=== PATIENT | female | born 1930 | race Caucasian/White ===

== ENCOUNTER → 2017-04-18 | Outpatient (CLI) | payer MEDICARE, OTHER ==
[~2017-04-18] MED LIST: DIOVAN
== END | disposition home or self-care (01) ==
LOC: RD 09:35
DX: M25.511 Pain in right shoulder (principal)

== ENCOUNTER 2019-01-19 18:41 | Inpatient (IN) | payer MEDICAID, MEDICARE ==
[~2019-01-19] VITALS: Ht 152.4 cm; Wt 60.0 kg
[2019-01-19 19:18] VITALS: Ht 152.4 cm; Wt 60.0 kg
--- NOTE | 2019-01-19 20:23 | NUR ---
PT LYING IN BED, AAOX4 WITH C/O 10/10 PAIN/SWELLING TO LT LEG TODAY WITH RASH X 2 WEEKS. PT DENIES ANY INJURY/TRAUMA. PT DENIES ANY N/V/D/C, RESP ILLNESS, OR URINARY PROBLEMS. PER FAMILY AT BEDSIDE, PT HAS HAD INTERMITTANT FEVERS X 2 WEEKS. PT NOTED WITH REDNESS/SWELLING FROM LT THIGHT TO LT FOOT, INCREASED PAIN WITH PALPATION. PER FAMILY AT BEDSIDE, PT ALSO HAS HAD A POOR APPETITE.
[2019-01-19] MEDS ORDERED: TRAZODONE50 M1 PO (20:31)
[2019-01-19] MEDS ORDERED: DIOVAN80 MG PO (20:31)
[2019-01-19] MEDS ORDERED: ASPIR 8181 MG PO (20:31)
[2019-01-19] MEDS ORDERED: CETIRIZINE HYDR10 MG PO (20:32)
[2019-01-19 21:00] LABS: BASOPHIL % 0.4 % (0-2); PLATELET COUNT 257 x10^3mcL (130-400); RED CELL DISTRIBUTION WIDTH 13.5 % (11.5-14.5)
--- NOTE | 2019-01-19 21:02 | NUR ---
US TECH AT BEDSIDE FOR US OF LT LEG.
[2019-01-19 21:11] LABS: CALCIUM 9.1 mg/dL (8.5-10.1); CHLORIDE SERUM 94 mmol/L (98-107); CREATININE SERUM 1.1 mg/dL (0.6-1.0); GLUCOSE SERUM 99 mg/dL (74-106); POTASSIUM SERUM 3.2 mmol/L (3.5-5.1); SODIUM SERUM 129 mmol/L (136-145)
[2019-01-19 21:17] LABS: ALKALINE PHOSPHATASE 67 U/L (46-116); ALT/SGPT 22 U/L (14-59); AST/SGOT 23 U/L (15-37); BILIRUBIN TOTAL 0.5 mg/dL (0.20-1.00); TOTAL PROTEIN, SERUM 7.7 g/dL (6.4-8.2)
--- NOTE | 2019-01-19 22:17 | NUR ---
PT RESTING IN BED WITH NO SIGNS OF DISTRESS AT THIS TIME.
--- NOTE | 2019-01-19 22:54 | NUR ---
REPORT GIVEN TO FELTON LANGLEY.
[2019-01-19 22:55] LABS: MAGNESIUM 2.2 mg/dL (1.8-2.4); PHOSPHOROUS 2.1 mg/dL (2.5-4.9)
[2019-01-19 23:02] LABS: CHOLESTEROL/HDL RATIO 4.8
[2019-01-19 23:43] VITALS: BP 155/58
[2019-01-19 23:57] LABS: UA SPECIFIC GRAVITY <=1.005 (1.005-1.035); microscopic required? YES; urine erythrocyte 2+ (NEGATIVE)
--- NOTE | 2019-01-19 23:58 | NUR ---
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 LUNG SOUND CLEAR BILATERAL, NO COUGH, PT IS ON TELE 8, NSR, DENY ANY CHEST PAIN OR DISCOMFORT, BOWEL SOUND PRESENT ALL 4 QUADRANTS, NO DISTENTION, NO TENDER. LEFT LEG ERYTHEMA AND SWELLING, +3 EDEMA LLE, RIGHT ANKLE ERYTHEMA, +1 RLE. IV AT LEFT FA, NO LEAKING, NO INFILTRATION. ALL ADLS ASSIST, ALL NEED MET, CALL LIGHT IN REACH, WILL CONTINUE TO MONITOR.
--- NOTE | 2019-01-20 00:05 | NUR ---
PT IS RESTING IN BED. A/O x4. DAUGHTER AT BEDSIDE. PT IS ON TELE #8, NSR. DENIES ANY CHEST PAIN OR PRESSURE. PULSES ARE PRESENT. EDEMA NOTED +3 ON LLE AND +1 ON RLE. LLE IS PINK IN COLOR FROM THE TOES TO UPPER THIGH. PT STATES IT WAS PINK FOR TWO WEEKS THEN IT JUST SWELLED UP AND SHE IS UNABLE TO WALK THAN BEFORE. SHE USES A WALKER AT BASELINE. SKIN IS INTACT, NO OPEN LESIONS. LUNGS CLEAR IN ALL FEILDS. ON RA, DENIES ANY SOB. EQUAL CHEST RISE AND FALL. DENIES ANY PAIN AT THIS TIME. IV ON LFA INTACT AND PATENT. BED IS AT LOWEST SETTING. CALL LIGHT WITHIN REACH. WILL CONTIUE TO [facility].
[2019-01-20 00:13] LABS: AMPHETAMINE QUAL UR NONE DETECTED (See below)
[2019-01-20 06:08] VITALS: BP 113/45
--- NOTE | 2019-01-20 06:39 | NUR ---
PT IS RESTING IN BED. DENIES ANY PAIN OR DISTRESS AT THIS TIME. NO ACUTE EVENTS OCCURED DURING SHIFT. BED IS AT LOWEST SETTING. CALL LIGHT WITHIN REACH. WILL ENDORSE TO AM NURSE.
--- NOTE | 2019-01-20 07:13 | NUR ---
RECEIVED PT IN NO ACUTE DISTRESS. AAOX4. RESP EVEN AND UNLABORED ON RA. ERYTHEMA AND SWELLING TO LLE, OUTLINED WITH MARKER. 2+ EDEMA TO LLE, 1+ EDEMA TO RLE. PT C/O PAIN TO LLE ONLY WHEN TOUCHED. IVF INFUSING, NO REDNESS OR SWELLING TO IV SITE. BED IN LOW POSITION, CALL LIGHT WITHIN REACH. WILL CONTINUE TO MONITOR.
[2019-01-20 07:15] LABS: CALCIUM 8.4 mg/dL (8.5-10.1); CARBON DIOXIDE 24.8 mmol/L (21-32); CHLORIDE SERUM 100 mmol/L (98-107); CREATININE SERUM 0.9 mg/dL (0.6-1.0); GLUCOSE SERUM 94 mg/dL (74-106); PHOSPHOROUS 2.7 mg/dL (2.5-4.9); POTASSIUM SERUM 4.1 mmol/L (3.5-5.1); SODIUM SERUM 133 mmol/L (136-145)
[2019-01-20 08:08] VITALS: BP 124/57
[2019-01-20 08:10] LABS: BASOPHIL % 0.4 % (0-2); PLATELET COUNT 216 x10^3mcL (130-400)
--- NOTE | 2019-01-20 11:49 | NUR ---
PT RESTING IN BED WITH EYES CLOSED BUT EASILY AROUSABLE. BREATHING EVEN AND UNLABORED ON RA. NO PAIN NOTED. LLE ELEVATED WITH PILLOW. IVF INFUSING, NO REDNESS OR SWELLING NOTED. VISITOR AT BEDSIDE. CALL LIGHT WITHIN REACH. WILL CONTINUE TO MONITOR.
[2019-01-20 12:12] VITALS: BP 116/56
--- NOTE | 2019-01-20 15:39 | NUR ---
Discount pharmacy card and list to low cost medical clinics given to patient by Yue Hein.
[2019-01-20 16:20] VITALS: BP 120/61
--- NOTE | 2019-01-20 17:00 | NUR ---
PT RESTING IN BED. NO ACUTE DISTRESS. REPORTS LITTLE PAIN TO LLE, TOLERABLE. LLE ELEVATED WITH PILLOW. IVF INFUSING, NO REDNESS OR SWELLING NOTED. CALL LIGHT WITHIN REACH. WILL CONTINUE TO MONITOR.
--- NOTE | 2019-01-20 18:06 | NUR ---
PT IN NO ACUTE DISTRESS. SITTING UP IN BED EATING DINNER. C/O MILD PAIN TO LLE BUT TOLERABLE. LLE WITH ERYTHEMA AND SWELLING, ELEVATED WITH PILLOW. R ANKLE WITH ERYTHEMA, PSYCHOLOGISTS. HOB ELEVATED. IVF INFUSING, NO REDNESS OR SWELLING NOTED. FALL PRECAUTIONS IN PLACE. BED IN LOW POSITION, CALL LIGHT WITHIN REACH. WILL ENDORSE TO ONCOMING SHIFT.
--- NOTE | 2019-01-20 19:30 | NUR ---
RECEIVED PT FROM DAY SHIFT RN. PT AAOX4 DENIES DAVEY/DIZZINESS. TELE #8 SR HR 65. PT DENIES CHEST PAIN/PRESSURE. BREATHING EVEN AND UNLABORED WITH NO SOB NOTED. GENERALIZED WEAKNESS. LEFT LEF EDEMA AND ERYTHEMA NOTED. RIGHT ANKLE ERYTHEMA NOTED. IV LFA PATENT AND INFUSING WELL. PT DENIES ANY PAIN. NO SIGNS OF ACUTE DISTRESS. CALL BUTTON WITHIN REACH. SAFETY PRECAUTIONS IN PLACE. WILL CONTINUE TO MONITOR.
[2019-01-20 20:57] VITALS: BP 115/61
--- NOTE | 2019-01-21 01:02 | NUR ---
PT RESTING. BREATIHNG EVEN AND UNLABORED WITH NO SOB NOTED. SAFETY PRECAUTIONS IN PLACE. WILL CONTINUE TO MONITOR.
--- NOTE | 2019-01-21 03:34 | NUR ---
ROUNDS MADE. PT RESTING. BREATHING EVEN AND UNLABORED WITH NO SIGNS OF DISTRESS. SAFETY PRECAUTIONS IN PLACE. WILL CONTINUE TO MONITOR.
--- NOTE | 2019-01-21 05:11 | NUR ---
PT SLEPT MOST OF THE NIGHT WITH NO SIGNS OF DISTRESS. BREATHING EVEN AND UNLABORED ON RA WITH NO SOB NOTED. IV PATENT, INFUISNG WELL WITH NO SIGNS OF INFILTRATION. PT MEDICATED PER EMAR. PT DENIES ANY PAIN. NO SIGNS OF DISTRESS. CALL BUTTON WITHIN REACH. SAFETY PRECAUTIONS IN PLACE. WILL CONTINUE TO MONITOR AND ENDORSE CARE TO DAY SHIFT RN.
[2019-01-21 06:02] VITALS: BP 128/53
[2019-01-21 07:00] LABS: CALCIUM 8.4 mg/dL (8.5-10.1); CARBON DIOXIDE 25.6 mmol/L (21-32); CHLORIDE SERUM 105 mmol/L (98-107); CREATININE SERUM 0.9 mg/dL (0.6-1.0); GLUCOSE SERUM 89 mg/dL (74-106); PHOSPHOROUS 3.4 mg/dL (2.5-4.9); POTASSIUM SERUM 3.7 mmol/L (3.5-5.1); SODIUM SERUM 139 mmol/L (136-145)
--- NOTE | 2019-01-21 07:17 | NUR ---
PT RESTING IN NO SIGNS OF DISTRESS. ENDORSED CARE TO DAY SHIFT RN, ALL QUESTIONS ADDRESSED.
--- NOTE | 2019-01-21 07:18 | NUR ---
RECEIVED PT RESTING IN BED. NO ACUTE DISTRESS. SLEEPING BUT EASILY AROUSABLE. BREATHING EVEN AND UNLABORED ON RA. IVF INFUSING, NO REDNESS OR SWELLING TO IV SITE. ERYTHEMA AND SWELLING TO LLE, CRIMINAL LAWYER, ELEVATED WITH PILLOW. SMALL ERYTHEMA TO R ANKLE, JOAQUIN. APPEARS COMFORTABLE, NO PAIN NOTED. FALL PRECAUTIONS. BED IN LOW POSITION, CALL LIGHT WITHIN REACH. WILL CONTINUE TO MONITOR.
[2019-01-21 07:51] LABS: BASOPHIL % 0.6 % (0-2); PLATELET COUNT 213 x10^3mcL (130-400); RED CELL DISTRIBUTION WIDTH 13.3 % (11.5-14.5)
[2019-01-21 09:06] VITALS: BP 129/46
[2019-01-21 12:12] VITALS: BP 132/48
--- NOTE | 2019-01-21 12:49 | NUR ---
PT SITTING UP IN BED. NO ACUTE DISTRESS. AAOX4. DENIES PAIN. IVF INFUSING, NO REDNESS OR SWELLING TO IV SITE. FAMILY AT BEDSIDE. HOB ELEVATED. FALL PRECAUTIONS. CALL LIGHT WITHIN REACH. WILL CONTINUE TO MONITOR.
[2019-01-21 17:04] VITALS: BP 138/53
--- NOTE | 2019-01-21 18:21 | NUR ---
PT SITTING UP IN BED. NO ACUTE DISTRESS. DENIES LLE PAIN. ERYTHEMA AND SWELLING TO LLE DECREASED, EXTREMITY ELEVATED WITH PILLOW. R ANKLE WITH ERYTHEMA. IVF INFUSING, NO REDNESS OR SWELLING NOTED. HOB ELEVATED. FALL PRECAUTIONS. FAMILY MEMBERS AT BEDSIDE. BED IN LOW POSITION, CALL LIGHT WITHIN REACH. WILL ENDORSE TO ONCOMING SHIFT.
[2019-01-21 19:33] VITALS: BP 137/51
--- NOTE | 2019-01-21 19:38 | NUR ---
RECEIVED PT FROM PREVIOUS SHIFT. PT A/OX4. DENIES PAIN. DENIES SOB ON RA. IV PATENT AND INFUSING NS AT 70ML/HR WITH NO S/S OF INFILTRATION. CALL LIGHT WITHIN REACH, BED IN LOW POSITION. WILL CONTINUE TO MONITOR.
--- NOTE | 2019-01-22 02:41 | NUR ---
PT RESTING IN NO ACUTE DISTRESS. RR EVEN AND UNLABORED. CALL LIGHT WITHIN REACH, BED IN LOW POSITION. WILL CONTINUE TO MONITOR.
[2019-01-22 06:04] VITALS: BP 152/51
[2019-01-22 06:20] LABS: BASOPHIL % 0.4 % (0-2); PLATELET COUNT 263 x10^3mcL (130-400); RED CELL DISTRIBUTION WIDTH 13.2 % (11.5-14.5)
[2019-01-22 06:32] LABS: CALCIUM 8.1 mg/dL (8.5-10.1); CARBON DIOXIDE 26.8 mmol/L (21-32); CHLORIDE SERUM 105 mmol/L (98-107); CREATININE SERUM 0.8 mg/dL (0.6-1.0); GLUCOSE SERUM 92 mg/dL (74-106); POTASSIUM SERUM 3.8 mmol/L (3.5-5.1); SODIUM SERUM 140 mmol/L (136-145)
--- NOTE | 2019-01-22 07:04 | NUR ---
RECIEVED REPORT FROM EULOGIO LANGLEY. PATIENT SLEEPING COMFORTABLY IN BED. NO NEEDS IDENTIFIED. IV TO LFA IS PATENT AND INFUSING NS @ 70 ML/HR. NO REDNESS OR PAIN. PT ON ROOM AIR. NO C/O SOB AND NO DISTRESS NOTED.TELE # [address] NO INDICATION OF CHEST PAIN. ALL QUESTIONS AND CONCERNS ADDRESSED.
[2019-01-22 08:43] VITALS: BP 140/53
--- NOTE | 2019-01-22 09:33 | NUR ---
PT IV INFILTRATED. NEW INSERTION ATTEMPT X4 WITH NO SUCCESS. QUALITY PROCESS ENGINEERKORIN YOUNG NOTIFIED. WILL ADMINISTER ROCEPHIN UPON INSERTION.
--- NOTE | 2019-01-22 11:17 | NUR ---
PATIENT AMBULATING IN THE [facility] WITH PHYSICAL THERAPY ASSISTED BY A WALKER.
--- NOTE | 2019-01-22 11:51 | NUR ---
NEW IV INSERTED IN RFA. ANTIBIOTICS ADMINISTERED NOW.
--- NOTE | 2019-01-22 12:03 | NUR ---
PATIENT TRANSFERRED TO [facility] IN TO REMOVE TELE MONITOR. PATIENT RESTING COMFORTABLY IN BED WITH DAUGHTER AT BEDSIDE. ALL NEEDS MET.
[2019-01-22 13:35] VITALS: BP 150/57
--- NOTE | 2019-01-22 13:46 | NUR ---
Initial Nutrition Assessment: 240T/B SUSAN MARTÍNEZ IA HR Dx: Cellulitis, hyponatremia PMHx: Hypertension, Major Depressive Disorder, Generalised Anxiety, Osteoarthritis PSHx: Other (unspecified Rt leg surgery) Labs: CA 8.1L, HGB 10.3L Meds: Colace, norco, rocephin, zofran Diet: regular PO Intake: (01/22) breakfast 100%, (01/21) breakfast 80%, lunch 90% Ht: 152.4 cm (60") Wt: 60.3 kg (133#) BMI: 26 kg/m2 Bed scale: 127.9# IBW: 100# (45 kg) %IBW: 133 UBW: 130# Age: 88/F Food Allergies: NKFA Skin: Rash noted to LLE just above knee. Nico: 18 Edema: +1 LLE GI: Last BM: 01/19 Trigger: poor PO >3d Per H&P, Pt is a 88 yoF with PMH of HTN came with cc of Left leg pain and rash. RDN Visit (01/22): Patient was alert and oriented but only spoke Beninese. Pt's. daughter was at bedside. She helped with translation. Pt. said that her appetite is poor but she tries to eat as much as she can. Patient appears emaciated and weak. Per progress note, (01/22) Patient continues on IV Rocephin for both cellulitis and UTI. Cellulitis doesnt appear to be improving and swelling is still noted. consulted Dr.Dhawan MALONE . Problem with: N/V/D/C: no Problems with: Chewing/Swallowing: no Current appetite: poor Recent wt change: none %wt change: n/a Vitamin/Supplement use: Vitamin D, MVI Special diet at home: regular Physical activity: walks with walker Nutrition education given: PO was encouraged. Pt. did not have any questions at this time. Food-drug interactions: Colace- high fiber w/8489-9653 ml fluids Education given:no Estimated Nutritional Needs Based on current body weight 60.3 kg Energy: 0206-3960 kcal/d (30-35 kcal/kg)- geriatric needs Protein: 60-72 g/d (1.0-1.2 g/kg) - preserve LBM Fluid: 9908-5387 ml/d (1 ml/kcal) or per doctor Nutrition Diagnosis 1. Increased nutrient needs related to inflammation, cellulitis, UTI as evidencded by estimated calorie and protein needs. Intervention 1. Recommend continuing regular diet with Ensure High protein BID Monitor/Evaluate Goal: PO intake at least 75% of estimated needs Monitor: PO intake, Labs, GI function F/U in 7 days as low risk 01/29
--- NOTE | 2019-01-22 13:47 | NUR ---
1. Recommend continuing regular diet with Ensure High protein BID
--- NOTE | 2019-01-22 15:13 | NUR ---
SPOKE WITH PHARMACY TO INQUIRE ABOUT CETIRIZINE STATUS IT HAS BEEN UNVERIFIED FOR SEVERAL DAYS. PHARMACIST STATED THAT IT IS NON-FORMULARY AND EITHER NEEDS TO BE BROUGHT IN BY FAMILY OR CHANGED TO EITHER BENADRYL OR CLAIRITIN.
[2019-01-22 16:35] VITALS: BP 144/65
--- NOTE | 2019-01-22 18:19 | NUR ---
IN TO SEE PATIENT AND ASSESS NEEDS. PATIENT RESTING COMFORTABLY IN BED WITH DAUGHTER AT BEDSIDE. ALL NEEDS MET.
--- NOTE | 2019-01-22 18:35 | NUR ---
PATIENT REPORTS ONE LARGE FORMED BM.
--- NOTE | 2019-01-22 19:17 | NUR ---
REPORT GIVEN TO CRISTINE LANGLEY. PATIENT RESTING COMFORTABLY IN BED WITH DAUGHTER AT BEDSIDE. ALL NEEDS MET. ALL QUESTIONS AND CONCERNS ADDRESSED. ALL CARES ENDORSED.
--- NOTE | 2019-01-22 19:44 | NUR ---
SHIFT REASSESSMENT DONE.PATIENT ALERT AND ORIENTED.MAINLY NEPALI,NEEDS ANTICIPATED.DAUGHTER AT BEDSIDE.SUPPORTIVE OF CARE.LLE REDNESS AND SWELLING .RLE REDNESS.VOIDING PER BEDPAN.NEPALI SPEAKING,NEEDS ANTICIPATED.CALL LIGHT IN REACH.DAUGHTER AT BEDSIDE.
--- NOTE | 2019-01-22 21:03 | NUR ---
PM MEDS GIVEN,SWALLOWS WELL.NS INFUSING WELL.MEDSURG,NO CHEST PAIN.CALL LIGHT IN REACH.MAINLY THAI,NEEDS ANTICIPATED.
[2019-01-22 21:52] VITALS: BP 143/48
--- NOTE | 2019-01-22 23:50 | NUR ---
DR CRUZ CAME IN ,DC MALISSA RICE ORDERED.
--- NOTE | 2019-01-23 03:18 | NUR ---
PATIENT USING BEDPAN WHEN NEEDED.KEEP CLEAN AND DRY.LEGS ELEVATED ON PILLOW,NEW ATB WILL START AT 6 AM.CALL LIGHT IN REACH.
--- NOTE | 2019-01-23 06:18 | NUR ---
PATIENT USES BEDPAN WHEN NEEDED.IVF INTACT,NEW ATB INITIATED.WILL CONTINUE PLAN OF CARE.
[2019-01-23 06:38] VITALS: BP 168/63
[2019-01-23 06:41] VITALS: BP 140/80
[2019-01-23 07:49] LABS: CARBON DIOXIDE 24.9 mmol/L (21-32); CHLORIDE SERUM 105 mmol/L (98-107); CREATININE SERUM 0.8 mg/dL (0.6-1.0); GLUCOSE SERUM 91 mg/dL (74-106); POTASSIUM SERUM 3.7 mmol/L (3.5-5.1); SODIUM SERUM 139 mmol/L (136-145)
--- NOTE | 2019-01-23 07:53 | NUR ---
AAO TIMES 4. NO TELE, MED SURG PATIENT. LUNGS CTA. NO SOB. O2 SAT ON RA 94%. BS'S ACTIVE TIMES 4. OLIVO, USES WALKER AT HOME. REQUESTING TO USE BEDPAN, DOESNT WANT TO AMBULATE TO [facility] YET. +1 EDEMA LLE. ERYTHEMA FROM LEFT MID JOVI DOWN TO LEFT FOOT. IV SITE RFA CDI, PATENT. NO C/O PAIN.
[2019-01-23 09:06] VITALS: BP 148/55
[2019-01-23 09:49] LABS: BASOPHIL % 1.7 % (0-2); PLATELET COUNT 249 x10^3mcL (130-400); RED CELL DISTRIBUTION WIDTH 13.5 % (11.5-14.5)
--- NOTE | 2019-01-23 15:15 | NUR ---
PATIENT C/O ITCHING TO CHEST AREA. ACROSS HER CHEST AND HER SHOULDERS AND UPPER ARMS IS A RASH WITH SCRATCH ADAMS. IT IS SOME WHEELS OF ERYTHEMA WITH OCCASIONAL SCRATCH AMRKS. I CALLED LIZ ORTIZ, SHE ORDERED BENADRYL 25 MG PO, IT WAS GIVEN AT 1532. I ALSO CLEANED HER UPPER CHEST WITH COOL WET WIPES. AFTER I CLEANED HER CHEST, THE REDNESS HAD DIMINISHED 10 MINUTES LATER AND SHE SAID IT FELT BETTER. LIZ ORTIZ SAID HER ROOM WAS VERY HOT THIS AM, SHE HAD THE HEATER ON, THAT IS WHY I CLEANED HER UPPER CHEST. PATIENT STATES IT FEELS BETTER, SHE SAID SHE WAS SWEATING THIS AM. SHE DID C/O BEING COLD AROUND 0700.
--- NOTE | 2019-01-23 15:23 | NUR ---
PHYSICAL THERAPY DAILY NOTES CO-SIGN All documentation done by the Cable Operator for 01/23/19 has been reviewed. I agree with the documentation. Reviewed/Co-Signed by: Adrienne Fernandez PT Documentation Done by:AYSHA PARRA BOX PERSON POC REVIEWED W/ BOX PERSON
--- NOTE | 2019-01-23 16:55 | NUR ---
THE ERETHEMETOUS WHEELS ON HER CHEST AND UPPER ARMS HAVE DIMINISHED 80%, SHE STATES IT QUIT ICHING.
[2019-01-23 17:33] VITALS: BP 168/66
--- NOTE | 2019-01-23 17:39 | NUR ---
AAO TIMES 4. MED SURG PATIENT. NO C/O PAIN. DENIES ITCHING, SOB, OR DIFFICULTY SWALLOWING. IV SITE RFA CDI. FAMILY PRESENT MOST OF DAY, CARING AND CONCERNED. LLE ELEVATED ON PILLOW MOST OF DAY. SHE IS ABMULATORY TO [facility] ASSIST WITH WALKER, SOMETIMES SHE PREFERS A BEDPAN BECAUSE ITS FASTER. SHE DID AMBULALATE WITH PT IN THE [place].
--- NOTE | 2019-01-23 19:45 | NUR ---
AWAKE AND VERBALLY RESPONISVE, ABLE TO MAKE NEEDS KNOWN. SKIN WARM AND DRY TO TOUCH. RESPIRATION EVEN AND UNLABORED.2+EDEMA LLE, 1+EDEMA RLE, KEPT ELEVATED WITH PILLOWS. PAIN LEVEL 2/10, BEARABLE AT THIS TIME. WILL CONTINUE TO MONITOR.
[2019-01-23 22:06] VITALS: BP 140/44
--- NOTE | 2019-01-24 | NUR ---
CONTINUES ON ATB IVPB ORDERED FOR MNAGEMNT OF UTI WITHOUT ADVERSE REACTION NOTED. APPARENTLY SOUND ASLEEP BUT RESPONSIVE TO TACTILE STIMULI. WILL CONTINUE TO MONITOR.
--- NOTE | 2019-01-24 05:27 | NUR ---
AMULATED TO BATHROOM WITH THE USE OF FWW ACCOMPANIED BY NURSE ASSIGNED. CONTINUES ON ATB IVPB ORDERED WITHOUT ADVERSE REACTION NOTED. KEPT CLEAN AND DRY.
[2019-01-24 06:04] VITALS: BP 166/65
--- NOTE | 2019-01-24 07:00 | NUR ---
RECEIVED BEDSIDE REPORT FROM COMMUNICATION CONSULTANT NURSE AT THIS TIME. PATIENT RESTING COMFORTABLY IN BED. NO APPARENT DISTRESS OR DISCOMFORT NOTED. BREATHING EVEN AND UNLABORED. NO RESPIRATORY DISTRESS OR DISCOMFORT NOTED. PATIENT DENIES SHORTNESS OF BREATH. PATIENT DENIES CHEST PAIN/PRESSURE. IV PATENT AND INTACT. ALL QUESTIONS AND CONCERNS ADDRESSED. ALL NEEDS ATTENDED TO. WILL CONTINUE TO MONITOR
[2019-01-24 07:30] LABS: CALCIUM 8.4 mg/dL (8.5-10.1); CARBON DIOXIDE 28.5 mmol/L (21-32); CHLORIDE SERUM 104 mmol/L (98-107); CREATININE SERUM 0.9 mg/dL (0.6-1.0); GLUCOSE SERUM 91 mg/dL (74-106); POTASSIUM SERUM 4.3 mmol/L (3.5-5.1); SODIUM SERUM 141 mmol/L (136-145)
[2019-01-24 08:59] VITALS: BP 133/74
--- NOTE | 2019-01-24 10:19 | NUR ---
MORNING MEDICATIONS ADMINISTERED. PATIENT TOLERATED MEDICATIONS WELL. NO ADVERSE EFFECTS NOTED. ALL NEEDS ATTENDED TO. WILL CONTINUE TO MONITOR
[2019-01-24 10:22] LABS: BASOPHIL % 1.9 % (0-2); PLATELET COUNT 304 x10^3mcL (130-400); RED CELL DISTRIBUTION WIDTH 13.8 % (11.5-14.5)
--- NOTE | 2019-01-24 12:57 | NUR ---
PATIENT SITTING UP IN BED EATING LUNCH AT THIS TIME. PATIENT TOLERTATING DIET WELL. NO APPARENT DISTRESS OR DISCOMFORT NOTED. ALL NEEDS ATTENDED TO. WILL CONTINUE TO MONITOR
[2019-01-24 17:25] VITALS: BP 148/61
--- NOTE | 2019-01-24 17:25 | NUR ---
PATIENT SITTING UP IN BED EATING DINNER AT THIS TIME. PATIENT TOLERATING DIET WELL. NO APPARENT DISTRESS OR DISCOMFORT NOTED. ALL NEEDS ATTENDED TO. WILL CONTINUE TO MONITOR
--- NOTE | 2019-01-24 18:28 | NUR ---
DR CRUZ AT BEDSIDE REVIEWING POC WITH PATIENT. ALL QUESTIONS AND CONCERNS ADDRESSED. PLAN TO BE DISCHARGED TOMORROW WITH PO ANTIBIOTICS. ALL NEEDS ATTENDED TO.
--- NOTE | 2019-01-24 19:09 | NUR ---
PATIENT RESTING COMFORTABLY IN BED AT THIS TIME. FAMILY MEMBER AT BEDSIDE. NO APPARENT DISTRESS OR DISCOMFORT NOTED. IV PATENT AND INTACT. ALL QUESTIONS AND CONCERNS ADDRESSED. ALL NEEDS ATTENDED TO. SAFETY PRECAUTIONS MAINTAINED. ENDORSED ALL CARE TO WHEAT GROWER NURSE
--- NOTE | 2019-01-24 19:54 | NUR ---
RECEIVED AWAKE IN BED ALERT AND ORIENTED, YI SPEAKING ONLY, FAMILY AT BEDSIDE VERY SUPPORTIVE OF PATIENT'S CURRENT PLAN OF CARE. DENIES ANY PAIN/DISCOMFORT . PLACED CALL LIGHT WITHIN REACH, INSTRUCTED TO CALL FOR ANY ASSISTANCE NEEDED AND VERBALIZED UNDERSTANDING.
[2019-01-24 21:50] VITALS: BP 138/55
--- NOTE | 2019-01-25 00:01 | NUR ---
CONTINUES ON ATB IVPB ORDERED. ORAL FLUIDS TOLERATED. NO S/S OF ASPIRATION. KEPT CLEAN AND DRY.
[2019-01-25 05:35] VITALS: BP 142/55
--- NOTE | 2019-01-25 05:36 | NUR ---
CONTINUES ON ATB IVPB ORDERED. NO ADVERSE REACTION NOTED. ASSISTED TO BATHROOM USING FWW WITH UNSTEADAY GAIT. KEPT CLEAN AND DRY. ALL NEEDS ATTBNEDED.
[2019-01-25 06:29] LABS: CALCIUM 8.4 mg/dL (8.5-10.1); CARBON DIOXIDE 26.7 mmol/L (21-32); CHLORIDE SERUM 104 mmol/L (98-107); CREATININE SERUM 0.9 mg/dL (0.6-1.0); GLUCOSE SERUM 91 mg/dL (74-106); POTASSIUM SERUM 3.9 mmol/L (3.5-5.1); SODIUM SERUM 139 mmol/L (136-145)
[2019-01-25 07:38] LABS: BASOPHIL % 0.4 % (0-2); PLATELET COUNT 323 x10^3mcL (130-400); RED CELL DISTRIBUTION WIDTH 13.7 % (11.5-14.5)
[2019-01-25 08:17] VITALS: BP 136/52
--- NOTE | 2019-01-25 09:00 | NUR ---
RECEIVED IN NO DISTRESS. AWAKE, ALERT AND ORIENTED. VS WNL. NO C/O PAIN OR DISCOMFORT. LLE WITH SOME REDNESS AND SWOLLEN. PULSES PALPABLE. IV SITE LEAKING, WILL RE-INSERT NEW LINE. CALL LIGHT WITHIN REACH. WILL CONTINUE [facility] PLAN OF CARE.
--- NOTE | 2019-01-25 10:35 | NUR ---
NEW IV INSERTED TO RFA.PATENT WITH NO REDNESS OR SWELLING. PT TOLERATED WELL.
--- NOTE | 2019-01-25 16:12 | NUR ---
PT C/O HEADACHE 10/16, TYLENOL GIVEN.
[2019-01-25 16:51] VITALS: BP 143/62
--- NOTE | 2019-01-25 18:44 | NUR ---
PT REMAINS IN NO DISTRESS. AWAKE, ALERT AND ORIENTED. FAMILY AT BEDSIDE. NO CHANGES IN VS. NO C/O PAIM OR DISCOMFORT. HL PATENT. CALL LIGHT WITHIN REACH. WILL BE ENDORSED TO INCOMING SHIFT.
[2019-01-25 19:30] VITALS: BP 140/61
--- NOTE | 2019-01-25 19:31 | NUR ---
RECEIVED PT IN BED RESTING WITH FAMILY AT BEDSIDE. NO ACUTE RESPIRATORY DISTRESS NOTED. NO S/S OF PAIN AT THIS TIME. IV SITE PATENT AND INTACT. LLE ERYTHEMA/ SWELLING NOTED. BED IN LOWEST POSITION,CALL LIGHT WITHIN REACH. WILL CONTINUE TO MONITOR.
--- NOTE | 2019-01-26 05:19 | NUR ---
PT APPEARS TO BE SLEEPING.NO DISTRESS NOTED.NO S/S OF PAIN. BED IN LOWEST POSITION,CALL LIGHT WITHIN REACH. WILL CONTINUE TO MONITOR.
[2019-01-26 05:38] VITALS: BP 132/53
--- NOTE | 2019-01-26 07:06 | NUR ---
RECEIVED PT FROM PATCH WASHER NURSE. PT RESTING IN BED, AOX4, RESP E/U ON RA. NO ACUTE DISTRESS NOTED AT THIS TIME. SALINE LOCKED TO LFA W/ NO ERYTHEMA OR EDEMA. BED IN LOWEST POSITION AND CALL LIGHT WITHIN REACH. WILL CONTINUE TO MONITOR.
--- NOTE | 2019-01-26 07:30 | NUR ---
CARE ENDORSED TO DAY NURSE
[2019-01-26 07:35] LABS: CALCIUM 8.3 mg/dL (8.5-10.1); CARBON DIOXIDE 25.7 mmol/L (21-32); CHLORIDE SERUM 99 mmol/L (98-107); CREATININE SERUM 0.8 mg/dL (0.6-1.0); GLUCOSE SERUM 88 mg/dL (74-106); POTASSIUM SERUM 4.2 mmol/L (3.5-5.1); SODIUM SERUM 135 mmol/L (136-145)
[2019-01-26 08:18] VITALS: BP 140/62
[2019-01-26 08:20] LABS: BASOPHIL % 0.4 % (0-2); PLATELET COUNT 362 x10^3mcL (130-400); RED CELL DISTRIBUTION WIDTH 13.6 % (11.5-14.5)
[2019-01-26] MEDS ORDERED: CLEOCIN HCL300 MG IV (10:24)
[2019-01-26 11:25] VITALS: BP 140/62
--- NOTE | 2019-01-26 11:30 | NUR ---
[facility]
[2019-01-26 11:42] VITALS: BP 121/52
--- NOTE | 2019-01-26 11:58 | NUR ---
PT DISCHARGED. REVIEWED VISIT SUMMARY, EDUCATIONAL PACKET AND FOLLOW UP INSTRUCTIONS W/ PT AND DAUGHTER SWEETIE. PT AOX4, RESP E/U ON RA, VS STABLE, DENIES PAIN AT THIS TIME. SALINE LOCKED TO RFA W/ NO ERYTHEMA OR EDEMA. PT ESCORTED TO DISCHARGE OFFICE VIA WHEELCHAIR BY KARUNA BRAVO W/ NO ACUTE INCIDENCE.
--- NOTE | 2019-01-27 07:07 | NUR ---
PHYSICAL THERAPY DAILY NOTES CO-SIGN All documentation done by the Fine Arts Instructor for 01/26/19 has been reviewed. I agree with the documentation. Reviewed/Co-Signed by: Danni Piña PT Documentation Done by: AYSHA PARRA PTA
== END 2019-01-26 11:56 | DRG 383 ==
LOC: ED 18:41 → MU 22:04 → DU 22:04 → MU 01-22 11:54
PROVIDERS: Emergency Medicine; ADMIT Internal Medicine
DX: L03.116 Cellulitis of left lower limb (principal); E44.0 Moderate protein-calorie malnutrition; E87.1 Hypo-osmolality and hyponatremia; E83.39 Other disorders of phosphorus metabolism; E87.8 Other disorders of electrolyte and fluid balance, not elsewhere classified; E87.6 Hypokalemia; E86.0 Dehydration; D53.9 Nutritional anemia, unspecified; I10 Essential (primary) hypertension; F41.1 Generalized anxiety disorder; F32.9 Major depressive disorder, single episode, unspecified; M19.90 Unspecified osteoarthritis, unspecified site; Z68.26 Body mass index [BMI] 26.0-26.9, adult
CPT/HCPCS: 83880; 97116-GP; 97530-GP; G0378; J0690; J0696; J2270; J3490; J7030; J7060; Q0092; Q0163